=== PATIENT | female | born 1995 | race Caucasian/White ===

== ENCOUNTER 2017-10-16 20:00 | Emergency (ER) | payer OTHER ==
[~2017-10-16] VITALS: Ht 154.9 cm; Wt 77.3 kg
[2017-10-16 20:02] VITALS: BP 156/87; TEMP 98.9
[2017-10-16] MEDS ORDERED: ZANAFLEX 4MG TAB4 MG PO (22:09)
[2017-10-16] MEDS ORDERED: ROBAXIN 50500 MG/TAB PO (22:09)
[2017-10-16] MEDS ORDERED: MOBIC15 MG PO (22:09)
[2017-10-16] MEDS ORDERED: AMITRIPTYLINE H25 M1 PO (22:09)
[2017-10-16 23:16] VITALS: PULSE 70
== END 2017-10-16 23:16 | disposition home or self-care (01) ==
LOC: COL.ER 20:00
DX: R51 Headache (principal)
CPT/HCPCS: J1885; J2765

== ENCOUNTER 2020-11-26 18:35 | Emergency (ER) | payer BC ==
[~2020-11-26] VITALS: Ht 152.4 cm; Wt 72.7 kg
[~2020-11-26 18:35] MED LIST: AMITRIPTYLINE H25 M1 PO; MOBIC15 MG PO; ROBAXIN 50500 MG/TAB PO; ZANAFLEX 4MG TAB4 MG PO
[2020-11-26 19:22] VITALS: TEMP 99.4
[2020-11-26 20:02] LABS: COLLECTION METHOD CLEAN CATCH
[2020-11-26 20:08] LABS: MUCOUS Present /lpf; PH 8 (5-8); SQUAMOUS EPITHELIAL 0-2 /hpf; URINE APPEARANCE Hazy; URINE BACTERIA None Seen /hpf; URINE BILIRUBIN Negative (NEGATIVE); URINE BLOOD Negative (NEGATIVE); URINE COLOR Yellow; URINE GLUCOSE Negative (NEGATIVE); URINE KETONE 2+ (NEGATIVE); URINE LEUKOCYTE ESTERASE Negative (NEGATIVE); URINE NITRATE Negative (NEGATIVE); URINE PROTEIN(semi-quant) 1+ (NEGATIVE); URINE UROBILINOGEN >=4.0 mg/dL (NEGATIVE)
[2020-11-26 20:17] LABS: BASO % 0.3 % (0.0-2.0); GRAN # 6.1 (1.4-6.5); HEMATOCRIT 38.9 % (37.0-47.0); LYMPH # 0.6 (1.2-3.4); LYMPH % 8.4 % (20.0-51.0); MEAN CELL VOLUME 89 fl (80.0-100.0); MEAN CORPUSCULAR HEMOGLOBIN 32 pg (27.0-31.0); MEAN CORPUSCULAR HGB CONC 36 g/dl (33.0-37.0); MEAN PLATELET VOLUME 9.7 fl (7.4-10.4); MONO # 0.6 (0.1-0.6); PLATELET COUNT 242 K/mm3 (130-400); RED BLOOD COUNT 4.36 M/mm3 (4.10-5.30); REDCELL DISTRIBUTION WIDTH-CV 12.1 % (11.5-14.5)
[2020-11-26 20:21] LABS: ALBUMIN 4.4 gm/dL (3.5-5.0); BILIRUBIN,TOTAL 0.9 mg/dL (0.0-1.0); CALCIUM 9.2 mg/dL (8.4-10.2); CREATININE, serum 0.91 (0.52-1.25); POTASSIUM 3.6 mmol/L (3.4-5.0); TOTAL PROTEIN 7.9 gm/dL (6.4-8.2)
[2020-11-26] MEDS ORDERED: ZOFRAN ODT4 MG PO (20:38)
[2020-11-26 21:03] VITALS: BP 115/61; PULSE 114
[2020-11-26] MEDS ORDERED: ADDERALL30 MG PO (21:58)
== END 2020-11-26 21:06 | disposition home or self-care (01) ==
LOC: COL.ER 18:35
PROVIDERS: Nurse Practitioner Primary Care
DX: R53.81 Other malaise (principal); R53.83 Other fatigue; R11.2 Nausea with vomiting, unspecified
CPT/HCPCS: J2405; J7030